=== PATIENT | female | born 1940 | race Two or more races ===

== ENCOUNTER 2018-08-08 17:57 | Inpatient (IN) | payer OTHER ==
[~2018-08-08] VITALS: Ht 157.5 cm; Wt 62.6 kg
[2018-08-08 21:55] VITALS: BP 147/71
--- NOTE | 2018-08-08 22:00 | NUR ---
RN ADMITTING NOTES DIRECT ADMIT FROM [facility]. Pt IS 77Y/F, A/OX4, VERBAL, ABLE TO MAKE NEEDS KNOWN. Pt C/O GENERALIZED WEAKNESS, WITH DIZZINESS AND HEADACHE, AND SOME CHEST DISCOMFORT. IV ACCESS ON RAC #20G. ON TELE MONITOR. SAFETY MEASURES IN PLACE. BED LOW, LOCKED, HOB ELEVATED, SIDE RAILS UP, CALL LIGHT AND BEDSIDE TABLE WITHIN REACH. WILL CONTINUE TO MONITOR Pt's CONDITION AND SAFETY THROUGHOUT THE NIGHT.
[2018-08-08 22:05] VITALS: BP 147/71
--- NOTE | 2018-08-08 22:15 | NUR ---
RN NOTES Pt REFUSED PICTURES TO BE TAKEN OF HER GROIN REDNESS & BUTTOCKS REDNESS. Pt AGREED TO HEAD TO TOE SKIN ASSESSMENT BUT REFUSED PICTURES. NO OPEN WOUNDS NOTED. ONLY REDNESS NOTED ON THE OUTER GROIN AREA BETWEEN SKIN FOLDS AND SLIGHT REDNESS ON BUTTOCKS.
[2018-08-09] VITALS: BP 157/66
[2018-08-09] MEDS ORDERED: DEXTROSE 50%-WATER 50 ML DISP.SYRIN IV PRN
[2018-08-09] MEDS ORDERED: ACETAMINOPHEN 325 MG TABLET PO PRN
[2018-08-09] MEDS ORDERED: ONDANSETRON HCL/PF 4 MG/2 ML VIAL IVP PRN
[2018-08-09] MEDS ORDERED: HYDROCODONE/APAP 5/325MG 1 EACH TABLET PO PRN
[2018-08-09] MEDS ORDERED: ZOLPIDEM TARTRATE 5 MG TABLET PO PRN
[2018-08-09] MEDS ORDERED: MAGNESIUM HYDROXIDE 30 ML UDC PO PRN
[2018-08-09] MEDS ORDERED: ATORVASTATIN 10 MG TABLET PO SCH
[2018-08-09] MEDS ORDERED: hydrALAZINE HCL 10 MG TABLET PO PRN
[2018-08-09] MEDS ORDERED: AMLODIPINE BESYLATE 5 MG TABLET PO ONE
[2018-08-09] MEDS ORDERED: Z GUARD REMEDY 2 OZ OINT TP PRN
--- NOTE | 2018-08-09 | NUR ---
RN NOTES Pt S/B HOSPITALIST DANIA MELGAR AT BEDSIDE. PER LARRY JONES WILL ORDER STAT HEAD CT TO RULE OUT CVA.
[2018-08-09] MEDS: ATORVASTATIN 40 MG TABLET PO SCH ×2 (00:59→21:43)
[2018-08-09 04:00] VITALS: BP 110/67
--- NOTE | 2018-08-09 06:35 | NUR ---
RN NOTES BG ACCUCHECK 119. NO INSULIN COVERAGE NEEDED AT THIS TIME.
[2018-08-09 06:36] LABS: BASOPHILS # (AUTO) 0.1 /CMM (0.0-0.2); BASOPHILS % (AUTO) 0.9 % (0.0-2.0); EOSINOPHILS % (AUTO) 4.6 % (0.0-6.0); HEMATOCRIT 37 % (33-45); HEMOGLOBIN 12.4 g/dL (11.5-14.8); LYMPHOCYTES # (AUTO) 1.6 /CMM (0.8-4.8); LYMPHOCYTES % (AUTO) 20.2 % (20.0-44.0); MEAN CORPUSCULAR HGB CONC 34 g/dl (31.0-36.0); MEAN CORPUSCULAR VOLUME 90 fL (82-100); MONOCYTES # (AUTO) 0.7 /CMM (0.1-1.30); NEUTROPHILS # (AUTO) 5.2 /CMM (1.8-8.9); NEUTROPHILS % (AUTO) 65.3 % (43.0-81.0); PLATELET COUNT (AUTO) 210 /CMM (150-450); RED BLOOD CELL COUNT(AUTO) 4.11 MIL/uL (4.0-5.2); WHITE BLOOD COUNT (AUTO) 7.9 K/uL (4.3-11.0)
[2018-08-09 06:40] LABS: CHOLESTEROL 161 mg/dL (<200); HDL CHOLESTEROL 50 mg/dL (40-60); LDL 95 mg/dL (0-99); TRIGLYCERIDES 156 mg/dL (30-150)
--- NOTE | 2018-08-09 06:40 | NUR ---
RN CLOSING NOTES NO SIGNIFICANT CHANGES IN Pt's CONDITION. Pt REMAINS STABLE AT THIS TIME. NO S/S OF ACUTE DISTRESS OR SOB NOTED DURING THE NIGHT. RESPIRATIONS EVEN AND UNLABORED. ALL NEEDS MET AND ATTENDED TO. SAFETY MEASURES IN PLACE. WILL ENDORSE TO DAYSHIFT RN FOR Pt's DEMETRA. Addendum: 08/09/18 at 0715 by VINNY HENDERSON RN TELE READING 72
[2018-08-09 06:46] LABS: CALCIUM, SERUM 9.3 mg/dL (8.5-10.1); CARBON DIOXIDE 27 mmol/L (21-32); CHLORIDE 105 mmol/L (98-107); CREATININE 1.5 mg/dL (0.6-1.3); GLUCOSE 113 mg/dL (74-106); MAGNESIUM 1.9 mg/dL (1.8-2.4); PHOSPHORUS 3.3 mg/dL (2.5-4.9); SODIUM SERUM 139 mmol/L (136-145); UREA NITROGEN, BLOOD 27 mg/dL (7-18)
[2018-08-09] MEDS ORDERED: IV NS 0.9% 1,000 ML IV PRN (07:43)
[2018-08-09] MEDS: BLOOD SUGAR DIAGNOSTIC 1 EACH STRIP IN SCH ×4 (07:57→21:44)
[2018-08-09 08:00] VITALS: BP 138/64
[2018-08-09] MEDS: ASPIRIN 81 MG TAB.CHEW PO SCH (08:34)
[2018-08-09] MEDS: METOPROLOL TARTRATE 25 MG TABLET PO SCH ×2 (08:35→21:43)
[2018-08-09] MEDS: AMLODIPINE BESYLATE 5 MG TABLET PO SCH (08:35)
--- NOTE | 2018-08-09 08:49 | NUR ---
AVERY MS NOTES Received patient with no sob or respiratory distress noted, patient remains stable. Patient is a/o x 4. Call light within reach. Patient is awaiting for CT abdominal 3d imaging. Addendum: 08/09/18 at 1021 by TAMIKA SON RN Patient is not awaiting for CT abdominal 3d imaging. Instead, patient is awaiting for CT angiogram 3d imaging.
[2018-08-09] MEDS ORDERED: LOSARTAN POTASSIUM 50 MG TABLET PO SCH (09:00)
[2018-08-09] MEDS ORDERED: VALSARTAN 80 MG TABLET PO SCH (09:00)
--- NOTE | 2018-08-09 09:41 | NUR ---
WOUND CARE CONSULT: PT PRESENTS WITH RASH TO PERINEAL, INNER THIGH AREAS, PRESENT ON ADMISSION. PT REFUSES PHOTOS. RECOMMENDATIONS MADE FOR SKIN PROTECTION AND CARE OF RASH. DISCUSSED WITH NURSING STAFF. PT ABLE TO ASSIST WITH TURNING AND REPOSITIONING IN BED. WILL SEE PRN. BRAVO IN AGREEMENT WITH PLAN OF CARE. CURRENT HOANG SCORE IS 15. Addendum: 08/09/18 at 0943 by EUSEBIO SARAVIA WNDNU Amended: Links added.
[2018-08-09 12:00] VITALS: BP 139/67
[2018-08-09] MEDS ORDERED: METF-442 PO (12:00)
[2018-08-09] MEDS ORDERED: GLIP10TA11 PO (12:00)
[2018-08-09] MEDS ORDERED: ATOR40TA PO (12:00)
[2018-08-09] MEDS ORDERED: AMLO5TAB9 PO (12:00)
[2018-08-09] MEDS ORDERED: LOSA50TA39 PO (12:00)
[2018-08-09] MEDS ORDERED: GLIP5TAB13 PO (12:00)
[2018-08-09] MEDS: INSULIN REGULAR, HUMAN 100 UNIT/ML 3 ML VIAL SQ PRN ×2 (12:09→17:55)
[2018-08-09] MEDS ORDERED: IOHEXOL-350 100 ML VIAL IV ONE (13:58)
[2018-08-09] MEDS ORDERED: CT SWABBABLE VALVE TRANS SET 1 EA INFUS.SET MC ONE (13:58)
[2018-08-09] MEDS ORDERED: IV NS 0.9% 250 ML IV ONE (13:58)
[2018-08-09] MEDS ORDERED: METOPROLOL TARTRATE INJ 5 MG/5 ML AMPUL ONE (14:29)
[2018-08-09 16:00] VITALS: BP 141/71
[2018-08-09] MEDS: CLOTRIMAZOLE 1% 15 GM TUBE TP SCH (18:03)
--- NOTE | 2018-08-09 18:40 | NUR ---
RN MS CLOSING NOTES Patient remains on room air, no sob or ventilatory distress noted. Patient had stable vital signs all shift. Patient still refuses for staff to take photo of her skin rash. Patient able to help with turning and repositioning. Patients call light within reach, and safety measures are in place.
--- NOTE | 2018-08-09 19:50 | NUR ---
RN OPENING NOTES RECEIVED REPORT FROM DAYSHIFT RNs PARVIZ & REENA. FOUND Pt RESTING COMFORTABLY IN BED. NO S/S OF ACUTE DISTRESS OR SOB NOTED. Pt IS A/OX4, VERBAL, ABLE TO MAKE NEEDS KNOWN. ON CARDIAC DIET. S/B PT TODAY. IV ACCESS ON LAC #18G. SAFETY MEASURES IN PLACE. BED LOW, LOCKED, HOB ELEVATED, SIDE RAILS UP, CALL LIGHT AND BEDSIDE TABLE WITHIN REACH. WILL CONTINUE TO MONITOR Pt's CONDITION AND SAFETY THROUGHOUT THE NIGHT.
[2018-08-09 20:00] VITALS: BP 145/73
--- NOTE | 2018-08-09 21:59 | NUR ---
RN NOTES HS ACCUCHECK BG 118. NO INSULIN COVERAGE NEEDED AT THIS TIME.
[2018-08-09 23:46] LABS: APPEARANCE,URINE CLEAR (CLEAR); BILIRUBIN,URINE NEGATIVE (NEGATIVE); BLOOD, URINE NEGATIVE Ery/uL (NEGATIVE); COLOR,URINE YELLOW (YELLOW); KETONES,URINE NEGATIVE (NEGATIVE); LEUKOCYTE ESTERASE ,URINE 1+ (NEGATIVE); NITRITE, URINE NEGATIVE (NEGATIVE); PH,URINE 6.5 (5.0-8.0); PROTEIN,URINE 1+ mg/dl (NEGATIVE); UGLUCOSE NEGATIVE (NEGATIVE); UROBILINOGEN,URINE 0.2 EU/dL (0.2)
[2018-08-09 23:54] LABS: CREATININE, URINE 30.9 MG/DL (30.0-125.0)
[2018-08-09 23:55] LABS: BACTERIA,URINE Few /HPF (None Seen); RBC,URINE 0-2 /HPF (0-2)
[2018-08-10 06:31] LABS: BASOPHILS % (AUTO) 0.7 % (0.0-2.0); EOSINOPHILS % (AUTO) 5.1 % (0.0-6.0); HEMATOCRIT 36 % (33-45); HEMOGLOBIN 12.3 g/dL (11.5-14.8); LYMPHOCYTES # (AUTO) 1.7 /CMM (0.8-4.8); LYMPHOCYTES % (AUTO) 24.8 % (20.0-44.0); MEAN CORPUSCULAR HGB CONC 34 g/dl (31.0-36.0); MEAN CORPUSCULAR VOLUME 90 fL (82-100); MONOCYTES # (AUTO) 0.7 /CMM (0.1-1.30); MONOCYTES % (AUTO) 9.8 % (2.0-12.0); NEUTROPHILS % (AUTO) 59.6 % (43.0-81.0); PLATELET COUNT (AUTO) 197 /CMM (150-450); RED BLOOD CELL COUNT(AUTO) 4.06 MIL/uL (4.0-5.2); WHITE BLOOD COUNT (AUTO) 6.7 K/uL (4.3-11.0)
--- NOTE | 2018-08-10 06:35 | NUR ---
RN NOTES AC ACCUCHECK BG 149. ADMINISTERED 2UN OF INSULIN PER SLIDING SCALE.
[2018-08-10 06:42] LABS: ALANINE AMINOTRANSFERASE 21 U/L (12-78); ALBUMIN 3.1 g/dL (3.4-5.0); ALKALINE PHOSPHATASE 88 U/L (46-116); ASPARTATE AMINOTRANSFERASE 20 U/L (15-37); BILIRUBIN,TOTAL 0.5 mg/dL (0.2-1.0); CALCIUM, SERUM 9.1 mg/dL (8.5-10.1); CARBON DIOXIDE 23 mmol/L (21-32); CHLORIDE 109 mmol/L (98-107); CREATININE 1.4 mg/dL (0.6-1.3); GLUCOSE 120 mg/dL (74-106); MAGNESIUM 1.8 mg/dL (1.8-2.4); PHOSPHORUS 3.5 mg/dL (2.5-4.9); SODIUM SERUM 144 mmol/L (136-145); TOTAL PROTEIN, SERUM 6.6 g/dL (6.4-8.2); UREA NITROGEN, BLOOD 25 mg/dL (7-18)
[2018-08-10] MEDS: BLOOD SUGAR DIAGNOSTIC 1 EACH STRIP IN SCH ×3 (06:42→18:05)
[2018-08-10] MEDS: INSULIN REGULAR, HUMAN 100 UNIT/ML 3 ML VIAL SQ PRN ×2 (06:49→11:46)
--- NOTE | 2018-08-10 07:15 | NUR ---
RN CLOSING NOTES NO SIGNIFICANT CHANGES IN Pt's CONDITION. Pt REMAINS STABLE PER BASELINE. NO S/S OF ACUTE DISTRESS OR SOB NOTED DURING THE NIGHT. RESPIRATIONS EVEN AND UNLABORED. ALL NEEDS MET AND ATTENDED TO. SAFETY MEASURES IN PLACE. ENDORSED TO DAYSHIFT RN FOR Pt's DEMETRA.
[2018-08-10 08:00] VITALS: BP 123/68
--- NOTE | 2018-08-10 08:00 | NUR ---
RN MS NOTES Patient received on room air, no sob or ventilatory distress noted. Patient has no complaints of pain or distress. Patients call light within reach.
[2018-08-10] MEDS ORDERED: VALSARTAN 80 MG TABLET PO SCH (09:00)
[2018-08-10] MEDS ORDERED: VALS80TA2 PO (09:20)
[2018-08-10] MEDS ORDERED: METO25TA20 PO (09:20)
[2018-08-10] MEDS ORDERED: NITR100C15 PO (09:20)
[2018-08-10] MEDS: METOPROLOL TARTRATE 25 MG TABLET PO SCH (09:23)
[2018-08-10] MEDS: ASPIRIN 81 MG TAB.CHEW PO SCH (09:23)
[2018-08-10] MEDS: AMLODIPINE BESYLATE 5 MG TABLET PO SCH (09:24)
[2018-08-10] MEDS ORDERED: NITROFURANTOIN/NITROFURAN MAC 100 MG CAPSULE PO SCH (09:30)
[2018-08-10] MEDS: CLOTRIMAZOLE 1% 15 GM TUBE TP SCH ×2 (11:45→17:43)
[2018-08-10] MEDS: CEPHALEXIN MONOHYDRATE 250 MG CAPSULE PO SCH ×2 (12:32→16:34)
[2018-08-10 16:00] VITALS: BP 146/56
--- NOTE | 2018-08-10 18:15 | NUR ---
RN MS NOTES PT IN BED, AWAKE, ALERT AND ORIENTED, NO COMPLAINT OF PAIN, RESPIRATIONS NORMAL, IV SITE AT LEFT A/C INTACT AND PATENT, PT FOR TRANSFER TO [facility] FOR CARDIAC CATH, PT INFORMED, CONSENT GIVEN, REPORT GIVEN TO SEPTEMBER RN, BELONGINGS ACCOUNTED FOR, PT REFUSED PHOTOS FOR SKIN DOCUMENTATION, PICKED UP BY 2 AMBULANCE PERSONNEL, LEFT VIA GUERNEY IN STABLE CONDITION.
[2018-08-11 10:19] LABS: *SPE A/G RATIO 0.9 (0.7-1.7); *SPE ALBUMIN 2.9 g/dL (2.9-4.4); *SPE ALPHA-1-GLOBULIN 0.2 g/dL (0.0-0.4); *SPE ALPHA-2-GLOBULIN 0.7 g/dL (0.4-1.0); *SPE BETA GLOBULIN 0.9 g/dL (0.7-1.3); *SPE GLOBULIN, TOTAL 3.1 g/dL (2.2-3.9); *SPE M-SPIKE Not Observed g/dL (Not Observed); *SPEGAMMA GLOBULIN 1.2 g/dL (0.4-1.8)
[2018-08-11 13:14] LABS: PTH, INTACT 46 pg/mL (15-65)
[2018-08-16 23:50] LABS: SQUAMOUS EPITHELIAL CELL,UR Few /HPF (None Seen)
== END 2018-08-10 18:27 | disposition short-term general hospital (02) | DRG 198 ==
LOC: TELE 21:50 → MED 08-09 08:29
PROVIDERS: ADMIT Nurse Practitioner Acute Care; ATTEND Nurse Practitioner Acute Care
DX: I25.10 Atherosclerotic heart disease of native coronary artery without angina pectoris (principal); N17.0 Acute kidney failure with tubular necrosis; E11.21 Type 2 diabetes mellitus with diabetic nephropathy; E11.65 Type 2 diabetes mellitus with hyperglycemia; N18.3 Chronic kidney disease, stage 3 (moderate); E11.22 Type 2 diabetes mellitus with diabetic chronic kidney disease; I12.9 Hypertensive chronic kidney disease with stage 1 through stage 4 chronic kidney disease, or unspecified chronic kidney disease; I16.0 Hypertensive urgency; E11.319 Type 2 diabetes mellitus with unspecified diabetic retinopathy without macular edema; E78.1 Pure hyperglyceridemia; E87.8 Other disorders of electrolyte and fluid balance, not elsewhere classified; N39.0 Urinary tract infection, site not specified; Z87.442 Personal history of urinary calculi
CPT/HCPCS: 36415; 70450-TC; 75574; 80048-TC; 80053-TC; 80061-TC; 81000-TC; 82570-TC; 82962-TC; 83735-TC; 83970; 84100-TC; 84155; 84155-TC; 84165; 84300-TC; 84484-TC; 85025-TC; 87081-TC; 87086-TC; 87186-TC; 93307-TC; 97530-TC; G0378; J1815; J3490; J7030; J7050; Q9967